=== PATIENT | male | born 1945 | race Caucasian/White ===

== ENCOUNTER 2023-09-22 09:15 | Outpatient (CLI) | payer MEDICARE, OTHER ==
[2023-09-22] MEDS ORDERED: Magnevist 469MG/ML 20 ML VIAL ONE (13:24)
== END 2023-09-22 09:16 | disposition home or self-care (01) ==
LOC: CSHMRI 09:15
PROVIDERS: ATTEND Radiology Radiation Oncology
DX: C61 Malignant neoplasm of prostate (principal); Z96.641 Presence of right artificial hip joint
CPT/HCPCS: 72197

== ENCOUNTER 2024-02-02 12:35 | Outpatient (CLI) | payer MEDICARE, OTHER | END 2024-02-02 12:36 | disposition home or self-care (01) | LOC: CSHLAB 12:35 | PROVIDERS: ATTEND Surgery | DX: Z01.818 Encounter for other preprocedural examination (principal); C16.9 Malignant neoplasm of stomach, unspecified; R94.31 Abnormal electrocardiogram [ECG] [EKG] | CPT/HCPCS: 93005; 93010 ==

== ENCOUNTER 2024-02-04 08:14 | Day surgery (SDC) | payer MEDICARE, OTHER ==
[2024-02-02 13:15] VITALS: BMI 39.8
[2024-02-04] MEDS ORDERED: CEFAZOLIN 2 GM VIAL ONE (08:30)
[2024-02-04] MEDS ORDERED: Bupivacaine PF 0.5% 30 ML VIAL ONE (08:30)
[2024-02-04] MEDS ORDERED: PROPOFOL 20 ML ONE (09:47)
[2024-02-04] MEDS ORDERED: Lidocaine 2% PF 5 ML VIAL ONE (10:14)
[2024-02-04] MEDS ORDERED: fentaNYL 50 mcg/mL 1 mL Vial ONE (10:15)
[2024-02-04] MEDS ORDERED: ePHEDrine Sulfate 50 MG/10 ML VIAL ONE (10:45)
== END 2024-02-04 12:35 | disposition home or self-care (01) ==
LOC: CSHSDC 08:14
PROVIDERS: ATTEND Surgery
PROC: 0JH60WZ Insertion of Totally Implantable Vascular Access Device into Chest Subcutaneous Tissue and Fascia, Open Approach (ICD-10-PCS; principal; 2024-02-04)
DX: C16.9 Malignant neoplasm of stomach, unspecified (principal); I10 Essential (primary) hypertension; J45.909 Unspecified asthma, uncomplicated; G47.33 Obstructive sleep apnea (adult) (pediatric); E66.9 Obesity, unspecified; Z68.41 Body mass index [BMI] 40.0-44.9, adult; Z88.7 Allergy status to serum and vaccine; Z79.899 Other long term (current) drug therapy
CPT/HCPCS: 36561; 71045; A6258; C1788; J0665; J1642; J2001; J2704; J3010

== ENCOUNTER 2024-03-12 11:03 | Outpatient (CLI) | payer MEDICARE, OTHER | END 2024-03-12 11:04 | disposition home or self-care (01) | LOC: CSHRAD 11:03 | PROVIDERS: ATTEND Nurse Practitioner Adult Health | DX: Z01.818 Encounter for other preprocedural examination (principal); C61 Malignant neoplasm of prostate; C16.2 Malignant neoplasm of body of stomach | CPT/HCPCS: 93005; 93010 ==

== ENCOUNTER 2024-09-13 09:13 | Outpatient (CLI) | payer MEDICARE, OTHER ==
[2024-09-13] MEDS ORDERED: Iopamidol 300 61% 100 ML VIAL FS ONE (15:30)
== END 2024-09-13 09:14 | disposition home or self-care (01) ==
LOC: CSHCT 09:13
PROVIDERS: ATTEND Internal Medicine Hematology & Oncology
DX: C61 Malignant neoplasm of prostate (principal); C16.2 Malignant neoplasm of body of stomach; Z98.890 Other specified postprocedural states
CPT/HCPCS: 36415; 71260; 74177; 82565

== ENCOUNTER 2025-02-15 05:50 | Day surgery (SDC) | payer MEDICARE, OTHER ==
[2025-02-14 12:38] VITALS: BMI 32.8
[2025-02-15] MEDS ORDERED: Bupivacaine HCl 0.5%/Epinephrine 1:200,000/PF 30 ml Vial ONE (06:25)
[2025-02-15] MEDS ORDERED: PROPOFOL 40 ML ONE (06:27)
[2025-02-15] MEDS ORDERED: Ondansetron PF 4 MG/2 ML Vial ONE (06:28)
[2025-02-15] MEDS ORDERED: CEFAZOLIN 2 GM VIAL ONE (06:54)
[2025-02-15] MEDS ORDERED: PHENYLEPHRINE-NS 100 MCG/ML 10 ML SYRINGE ONE (07:22)
== END 2025-02-15 08:50 | disposition home or self-care (01) ==
LOC: CSHSDC 05:50
PROVIDERS: ATTEND Surgery
PROC: 0JPT0XZ Removal of Tunneled Vascular Access Device from Trunk Subcutaneous Tissue and Fascia, Open Approach (ICD-10-PCS; principal; 2025-02-15)
PROC: 0JH63XZ Insertion of Tunneled Vascular Access Device into Chest Subcutaneous Tissue and Fascia, Percutaneous Approach (ICD-10-PCS; 2025-02-15)
DX: T82.514A Breakdown (mechanical) of infusion catheter, initial encounter (principal); C16.9 Malignant neoplasm of stomach, unspecified; I10 Essential (primary) hypertension; E03.9 Hypothyroidism, unspecified; K21.9 Gastro-esophageal reflux disease without esophagitis; J44.9 Chronic obstructive pulmonary disease, unspecified; Z96.641 Presence of right artificial hip joint; Z90.49 Acquired absence of other specified parts of digestive tract; Z88.8 Allergy status to other drugs, medicaments and biological substances; Z79.890 Hormone replacement therapy; Z79.51 Long term (current) use of inhaled steroids; Z79.899 Other long term (current) drug therapy; Y83.1 Surgical operation with implant of artificial internal device as the cause of abnormal reaction of the patient, or of later complication, without mention of misadventure at the time of the procedure
CPT/HCPCS: 36582; 71045; A6258; C1788; J1100; J1642; J2405; J2704; J3010

== ENCOUNTER 2025-02-21 09:11 | Outpatient (CLI) | payer MEDICARE, OTHER | END 2025-02-21 09:12 | disposition home or self-care (01) | LOC: CSHCT 09:11 | PROVIDERS: ATTEND Internal Medicine Hematology & Oncology | DX: C61 Malignant neoplasm of prostate (principal); C16.2 Malignant neoplasm of body of stomach; C78.6 Secondary malignant neoplasm of retroperitoneum and peritoneum; R18.8 Other ascites; K76.9 Liver disease, unspecified; J90 Pleural effusion, not elsewhere classified | CPT/HCPCS: 71250 ==

== ENCOUNTER 2025-02-28 12:26 | Outpatient (CLI) | payer MEDICARE, OTHER | END 2025-02-28 12:27 | disposition home or self-care (01) | LOC: CSHULT 12:26 | PROVIDERS: ATTEND Internal Medicine Hematology & Oncology | DX: C61 Malignant neoplasm of prostate (principal); C16.2 Malignant neoplasm of body of stomach; R18.8 Other ascites | CPT/HCPCS: 76705 ==

== ENCOUNTER 2025-03-07 12:10 | Day surgery (SDC) | payer MEDICARE, OTHER ==
[2025-03-07] MEDS ORDERED: Sodium Bicarbonate 2.5 MEQ/5 ML SDV ONE (13:08)
[2025-03-07 13:10] LABS: INR-International Normal Ratio 1.2; Prothrombin Time 13.3 sec (9.5-12.1)
== END 2025-03-07 14:15 | disposition home or self-care (01) ==
LOC: CSHULT 12:10
PROVIDERS: ATTEND Nurse Practitioner Family
PROC: 0W9G3ZZ Drainage of Peritoneal Cavity, Percutaneous Approach (ICD-10-PCS; principal; 2025-03-07)
DX: R18.8 Other ascites (principal); C61 Malignant neoplasm of prostate; C16.2 Malignant neoplasm of body of stomach; I10 Essential (primary) hypertension; E66.9 Obesity, unspecified; Z68.35 Body mass index [BMI] 35.0-35.9, adult; Z96.641 Presence of right artificial hip joint
CPT/HCPCS: 49083; 85610